=== PATIENT | male | born 1940 | race American Indian/Alaskan Native ===

== ENCOUNTER → 2016-06-15 | Outpatient (CLI) | payer OTHER, BC | LOC: MRI 06:21 | DX: J32.9 Chronic sinusitis, unspecified (principal) ==

== ENCOUNTER → 2017-11-16 | Outpatient (CLI) | payer OTHER, BC | LOC: CAT 12:14 | DX: G31.9 Degenerative disease of nervous system, unspecified (principal); I67.9 Cerebrovascular disease, unspecified; R06.02 Shortness of breath; W19.XXXA Unspecified fall, initial encounter ==

== ENCOUNTER → 2017-11-20 | Outpatient (CLI) | payer OTHER, BC | LOC: RAD 09:18 | DX: R06.02 Shortness of breath (principal) ==

== ENCOUNTER → 2019-08-06 | Outpatient (CLI) | payer OTHER, BC | LOC: RAD 15:19 | PROVIDERS: ATTEND Internal Medicine Pulmonary Disease | DX: R06.02 Shortness of breath (principal); R53.83 Other fatigue; G47.19 Other hypersomnia; G47.33 Obstructive sleep apnea (adult) (pediatric); J31.0 Chronic rhinitis; E66.09 Other obesity due to excess calories; M54.5 Low back pain; Z68.31 Body mass index [BMI] 31.0-31.9, adult ==

== ENCOUNTER 2019-08-20 12:37 | Emergency (ER) | payer OTHER, BC ==
[~2019-08-20] VITALS: Ht 167.6 cm; Wt 82.6 kg
[2019-08-20 13:45] VITALS: BP 125/68
== END 2019-08-20 13:45 | disposition home or self-care (01) ==
LOC: ER 12:37
DX: R06.02 Shortness of breath (principal); Z88.5 Allergy status to narcotic agent; Z91.048 Other nonmedicinal substance allergy status; Z20.828 Contact with and (suspected) exposure to other viral communicable diseases

== ENCOUNTER → 2019-08-23 | Outpatient (CLI) | payer OTHER, BC | LOC: MRI 09:54 | PROVIDERS: ATTEND Neuromusculoskeletal Medicine & OMM | DX: M51.26 Other intervertebral disc displacement, lumbar region (principal); M47.817 Spondylosis without myelopathy or radiculopathy, lumbosacral region; M48.07 Spinal stenosis, lumbosacral region ==

== ENCOUNTER → 2020-11-06 | Outpatient (CLI) | payer OTHER, BC | LOC: RAD 10:20 | PROVIDERS: ATTEND Internal Medicine Pulmonary Disease | DX: R06.02 Shortness of breath (principal); I70.0 Atherosclerosis of aorta ==